=== PATIENT | female | born 1995 | race Caucasian/White ===

== ENCOUNTER 2018-07-01 14:06 | Emergency (ER) | payer SELFPAY ==
[~2018-07-01] VITALS: Ht 167.6 cm; Wt 104.6 kg
[2018-07-01] MEDS ORDERED: METHOCARBAMOL 750 MG TABLET PO ONE (14:30)
[2018-07-01] MEDS ORDERED: METHOCARBAMOL 750 MG TABLET ONE (14:39)
[2018-07-01 15:37] VITALS: BP 116/62
== END 2018-07-01 15:39 | disposition home or self-care (01) ==
LOC: ED 15:33
DX: S32.009A Unspecified fracture of unspecified lumbar vertebra, initial encounter for closed fracture (principal); F17.200 Nicotine dependence, unspecified, uncomplicated; W19.XXXA Unspecified fall, initial encounter; Y93.89 Activity, other specified; Y92.89 Other specified places as the place of occurrence of the external cause; Y99.8 Other external cause status
CPT/HCPCS: 72072; 72110; 99284